=== PATIENT | female | born 1980 | race Caucasian/White ===

== ENCOUNTER 2018-11-29 19:18 | Emergency (ER) | payer MEDICAID ==
[~2018-11-29] VITALS: Ht 162.6 cm; Wt 49.9 kg
[2018-11-29 19:20] VITALS: BP_SYST 90
[2018-11-29] MEDS ORDERED: ACETAMINOPHEN 325 MG TABLET ONE (19:52)
[2018-11-29] MEDS ORDERED: PROMETHAZINE 6.25 MG/ CODEINE 10 MG/ 5 ML PO ONE (21:00)
[2018-11-29] MEDS ORDERED: IBUPROFEN 600 MG TABLET PO ONE (21:00)
[2018-11-29] MEDS ORDERED: AMOXICILLIN 500 MG CAPSULE PO ONE (21:00)
[2018-11-29 21:14] VITALS: BP_SYST 101
== END 2018-11-29 21:10 | disposition home or self-care (01) ==
LOC: SED 19:18
DX: R07.89 Other chest pain (principal); F17.210 Nicotine dependence, cigarettes, uncomplicated; E11.9 Type 2 diabetes mellitus without complications; E03.9 Hypothyroidism, unspecified
CPT/HCPCS: 36415; 71045; 81025; 82962; 86710; 99284

== ENCOUNTER 2019-06-28 09:51 | Emergency (ER) | payer MEDICAID ==
[~2019-06-28] VITALS: Ht 162.6 cm; Wt 51.3 kg
[2019-06-28 09:51] VITALS: BP_SYST 144
[2019-06-28] MEDS ORDERED: INSULIN REGULAR, HUMAN 100 UNITS/ML, 10 ML VIAL SUBCUT ONE (10:15)
[2019-06-28] MEDS ORDERED: NACL 0.9% 1,000 ML IV ONE ×2 (10:15→11:45)
[2019-06-28] MEDS ORDERED: MORPHINE 4 MG/ML INJ. SYRINGE IVP ONE (10:15)
[2019-06-28] MEDS ORDERED: ONDANSETRON HCL 4 MG/2 ML VIAL IVP ONE (10:15)
[2019-06-28 10:30] LABS: BASOPHILS # (AUTO) 0.1 K/uL (0.0-0.2); BASOPHILS % (AUTO) 0.8 % (0.0-2.0); EOSINOPHILS % (AUTO) 0.5 % (0.0-4.0); HEMATOCRIT 48.6 % (36-48); HEMOGLOBIN 16.5 g/dL (12.0-16.0); LYMPHOCYTES # (AUTO) 1.2 K/uL (1.0-5.5); LYMPHOCYTES % (AUTO) 14.6 % (20.5-51.5); MEAN CORPUSCULAR HEMOGLOBIN 31 pg (27-31); MEAN CORPUSCULAR HGB CONC 34 % (32-36); MEAN CORPUSCULAR VOLUME 92 fL (79.0-98.0); MONOCYTES # (AUTO) 0.3 K/uL (0.0-1.0); MONOCYTES % (AUTO) 4.1 % (1.7-9.3); NEUTROPHILS # (AUTO) 6.6 K/uL (1.8-7.7); PLATELET COUNT (AUTO) 295 K/uL (130-430); RED BLOOD CELL COUNT(AUTO) 5.28 MIL/uL (4.2-6.2); RED CELL DISTRIBUTION WIDTH 12.9 % (9.0-15.0); WHITE BLOOD COUNT (AUTO) 8.3 K/uL (4.8-10.8)
[2019-06-28 10:41] LABS: ANION GAP 17 (5-15); CALCIUM 9.4 mg/dL (8.4-11.0); CHLORIDE 96 mmol/L (98-107); CREATININE 1.07 mg/dL (0.55-1.30); GLUCOSE 365 mg/dL (70-99); POTASSIUM 4.6 mmol/L (3.5-5.1); SODIUM SERUM 132 mmol/L (136-145); UREA NITROGEN, BLOOD 22 mg/dL (8-21)
[2019-06-28 10:43] LABS: GFR AFRICAN AMERICAN 73 mL/min (>90)
[2019-06-28 10:50] LABS: ALANINE AMINOTRANSFERASE 19 U/L (12-78); ALBUMIN 4.4 g/dL (3.4-4.8); ASPARTATE AMINOTRANSFERASE 20 U/L (10-37); LIPASE 87 U/L (73-393)
[2019-06-28] MEDS ORDERED: LORazepam 2 MG/ML VIAL IVP ONE (11:00)
[2019-06-28] MEDS ORDERED: INSULIN REGULAR, HUMAN 10 UNITS/0.1 ML INJ IVP ONE ×2 (11:00→11:45)
[2019-06-28 11:48] LABS: BILIRUBIN,URINE NEGATIVE (NEGATIVE); BLOOD, URINE 3+ (NEGATIVE); COLOR,URINE YELLOW (YELLOW); GLUCOSE,URINE 2+ (NEGATIVE); KETONES,URINE 3+ (NEGATIVE); LEUKOCYTE ESTERASE ,URINE NEGATIVE (NEGATIVE); NITRITE, URINE NEGATIVE (NEGATIVE); PH,URINE 5.5 (5.0-8.0); PROTEIN URINE NEGATIVE (NEGATIVE); UROBILINOGEN,URINE 0.2 (0.2-1.0)
[2019-06-28 11:50] LABS: CLARITY/URINE SLIGHTLY HAZY (CLEAR)
[2019-06-28 11:59] LABS: BARBITURATE, URINE NEGATIVE (NEG <=200); BENZODIAZEPINE, URINE NEGATIVE (NEG <=150); CANNABINOID, URINE NEGATIVE (NEG <=50); COCAINE, URINE NEGATIVE (NEG <=150); METHAMPHETAMINES SCREEN,URINE NEGATIVE (NEG <=500); OPIATE, URINE POSITIVE (NEG <=100); PHENCYCLIDINE SCREEN,URINE NEGATIVE (NEG <=25); URINE AMPHETAMINE NEGATIVE (NEG <=500); URINE METHADONE NEGATIVE (NEG <=200)
[2019-06-28 12:00] LABS: UR TRICYCLIC ANTIDEPRESSANTS NEGATIVE (NEG <=300); URINE OXYCODONE SCREEN NEGATIVE (NEG <=100); URINE PROPOXYPHENE SCREEN NEGATIVE (NEG <=300)
[2019-06-28 12:24] LABS: BACTERIA,URINE FEW /HPF (None Seen); RBC,URINE 20-50 /HPF (0-3); WBC,URINE 0-3 /HPF (0-3)
[2019-06-28] MEDS ORDERED: POTASSIUM CHLORIDE 20 MEQ/PKT PACKET PO ONE (13:15)
[2019-06-28 13:49] VITALS: BP_SYST 138
== END 2019-06-28 13:52 | disposition home or self-care (01) ==
LOC: SED 09:51
DX: E10.65 Type 1 diabetes mellitus with hyperglycemia (principal); K59.00 Constipation, unspecified; R11.2 Nausea with vomiting, unspecified; F17.210 Nicotine dependence, cigarettes, uncomplicated; R03.0 Elevated blood-pressure reading, without diagnosis of hypertension; E03.9 Hypothyroidism, unspecified; F32.9 Major depressive disorder, single episode, unspecified; Z71.6 Tobacco abuse counseling
CPT/HCPCS: 36415; 71045; 74176; 80053; 80307; 81000; 82962; 83690; 84484; 85025; 93005; 96361; 96374; 96375; 96376; 99284; J1815; J2270; J2405; J7030

== ENCOUNTER 2022-09-23 23:29 | Emergency (ER) | payer MEDICAID ==
[~2022-09-23] VITALS: Ht 162.6 cm; Wt 49.9 kg
[2022-09-23 23:45] VITALS: BP_SYST 113
== END 2022-09-24 00:40 | disposition left against medical advice (07) ==
LOC: SED 23:29
DX: R10.30 Lower abdominal pain, unspecified (principal); R11.0 Nausea; Z53.21 Procedure and treatment not carried out due to patient leaving prior to being seen by health care provider

== ENCOUNTER 2023-06-29 20:03 | Emergency (ER) | payer MEDICAID ==
[~2023-06-29] VITALS: Ht 162.6 cm; Wt 54.4 kg
[2023-06-29] MEDS ORDERED: KETOROLAC TROMETHAMINE 60 MG/2 ML VIAL IM ONE (20:30)
[2023-06-29 20:32] VITALS: BP_SYST 130; PULSE 113; RESP 20; TEMP 97.8; O2SAT 100
[2023-06-29] MEDS ORDERED: DIPHTH,PERTUSS(ACELL),TET VAC 0.5 ML VIAL (Tdap) I.M. ONE (21:15)
[2023-06-29] MEDS ORDERED: LIDOCAINE 1% 10 MG/ML, 20 ML MDV SUBCUT ONE (21:15)
[2023-06-29] MEDS ORDERED: IBUP-1969 PO (22:13)
[2023-06-29] MEDS ORDERED: HYDR-3917 PO (22:13)
[2023-06-29] MEDS ORDERED: MORPHINE 4 MG INJ. 4 MG/ML VIAL IM ONE (22:15)
[2023-06-29 22:26] VITALS: BP_SYST 127; PULSE 86; RESP 20; TEMP 98.1; O2SAT 99
== END 2023-06-29 22:29 | disposition home or self-care (01) ==
LOC: SED 20:03
DX: S61.300A Unspecified open wound of right index finger with damage to nail, initial encounter (principal); E11.9 Type 2 diabetes mellitus without complications; Z79.899 Other long term (current) drug therapy; W23.0XXA Caught, crushed, jammed, or pinched between moving objects, initial encounter; Y93.89 Activity, other specified; Y92.89 Other specified places as the place of occurrence of the external cause; Y99.8 Other external cause status
CPT/HCPCS: 99284; 73140; 90715; 90471; 12001; 29130; 96372; J1885; J2270

== ENCOUNTER 2023-07-07 13:32 | Emergency (ER) | payer MEDICAID ==
[~2023-07-07] VITALS: Ht 162.6 cm; Wt 53.5 kg
[~2023-07-07 13:32] MED LIST: HYDR-3917 PO; IBUP-1969 PO
[2023-07-07 13:47] VITALS: BP_SYST 134; PULSE 85; RESP 16; TEMP 98.5; O2SAT 97
== END 2023-07-07 15:02 | disposition home or self-care (01) ==
LOC: SED 13:32
DX: S61.210A Laceration without foreign body of right index finger without damage to nail, initial encounter (principal); E11.9 Type 2 diabetes mellitus without complications; F17.210 Nicotine dependence, cigarettes, uncomplicated; Z79.899 Other long term (current) drug therapy; X58.XXXA Exposure to other specified factors, initial encounter; Y93.89 Activity, other specified; Y92.89 Other specified places as the place of occurrence of the external cause; Y99.8 Other external cause status
CPT/HCPCS: 99281

== ENCOUNTER 2023-08-19 08:35 | Emergency (ER) | payer MEDICAID ==
[~2023-08-19] VITALS: Ht 162.6 cm; Wt 55.3 kg
[2023-08-19 08:53] VITALS: BP_SYST 157; PULSE 91; RESP 18; TEMP 97.4; O2SAT 100
[2023-08-19] MEDS ORDERED: LIDOCAINE/EPI 1% 1:100000 20 ML VIAL INJ ONE (09:30)
[2023-08-19] MEDS ORDERED: ACETAMINOPHEN 500 MG TABLET PO ONE (09:45)
[2023-08-19] MEDS ORDERED: KETOROLAC TROMETHAMINE 30 MG VIAL IM ONE (09:45)
[2023-08-19] MEDS ORDERED: SULF1TAB48 PO (10:29)
[2023-08-19] MEDS ORDERED: HYDR-3917 PO (10:30)
[2023-08-19 10:47] VITALS: BP_SYST 141; PULSE 91; RESP 18; TEMP 97.4; O2SAT 100
== END 2023-08-19 10:46 | disposition home or self-care (01) ==
LOC: SED 08:35
DX: L02.01 Cutaneous abscess of face (principal); R22.0 Localized swelling, mass and lump, head; Z79.899 Other long term (current) drug therapy
CPT/HCPCS: 99284; 10160; 96372; J1885; 99283